=== PATIENT | female | born 1985 | race American Indian/Alaskan Native ===

== ENCOUNTER 2017-05-02 09:33 | Emergency (ER) | payer SELFPAY ==
--- NOTE | 2017-05-02 14:01 | Ultrasound Report ---
Targeted left breast ultrasound. History: 32 year-old female who presents to the emergency room with history of subareolar mass times one day with extreme pain and tenderness. There is no history of injury or trauma. No prior studies are available. Findings: In the subareolar region, there is a complex collection measuring 1.6 x 2.0 cm. The margins are circumscribed, and there is no acoustic shadowing. Impression: Complex collection as described probably representing a subareolar abscess. BI-RADS code: 3. Recommendation: Short-term sonographic followup after appropriate management.
[2017-05-02] MEDS ORDERED: KEFLEX PO ONE (14:06)
[2017-05-02] MEDS ORDERED: BACTRIM DS PO ONE (14:06)
[2017-05-02] MEDS ORDERED: MOTRIN PO ONE (14:08)
[2017-05-02 14:09] VITALS: BP 135/77
--- NOTE | 2017-05-02 15:53 | Emergency Department Report ---
Entered by MARY CASTILLO, acting as scribe for OLIVER GUTIÉRREZ PA. ED Female HPI - General Chief complaint: Urogenital-Female Stated complaint: RT BREAST SWOLLEN/NIPPLE Time Seen by Provider: 05/02/17 13:13 Source: patient Mode of arrival: Ambulatory Limitations: No Limitations - History of Present Illness Initial comments: 32 year old female with no significant PMHx presents to ED c/o right breast pain with edema last night. Patient states she had similar symptoms, with both breast, during her menstrual cycle, but last night symptoms occur only on right side. Patient states in the past day the masses gotten bigger and has become more painful to touch, she describes them as throbbing pain aching in nature that's localized to her right middle breast. Patient reports tingling 2 days prior before onset of her cycle, but denies headache, dizziness, nausea, vomiting, abd pain, chest pain, SOB, , and numbness. Patient is currently on her menstrual cycle that started 2 days ago. NKDA. HART Complaint: other (right breast nipple swollen ) -: Last night Radiation: non-radiating Severity: moderate Severity scale (0 -10): 5 Quality: stabbing Consistency: constant Improves with: none Worsens with: menstrual period Are you Now?: No Associated Symptoms: denies other symptoms. denies: vaginal discharge, vaginal bleeding, abdominal pain, nausea/vomiting, fever/chills, headaches, shortness of breath, syncope, weakness - Related Data Previous Rx's Medication Instructions Recorded Last Taken Type Cephalexin [Keflex] 250 mg PO BID #8 capsule 05/02/17 Unknown Rx Ibuprofen [Motrin] 800 mg PO Q8HR PRN #30 tablet 05/02/17 Unknown Rx Sulfamethoxazole/Trimethoprim 1 each PO BID #12 tablet 05/02/17 Unknown Rx [Bactrim DS TAB] Allergies Allergy/AdvReac Type Severity Reaction Status Date / Time No Known Allergies Allergy Unverified 05/02/17 10:04 ED Review of Systems Comment: All other systems reviewed and negative Constitutional: denies: chills, fever Respiratory: denies: cough, shortness of breath, wheezing Cardiovascular: denies: chest pain, palpitations Gastrointestinal: denies: abdominal pain, nausea, vomiting, diarrhea Genitourinary: denies: urgency, dysuria, frequency, discharge Musculoskeletal: denies: back pain, joint swelling, arthralgia Skin: denies: rash, lesions Neurological: denies: headache, weakness, numbness, paresthesias ED Past Medical Hx - Past Medical History Previous Medical History?: No - Surgical History Additional Surgical History: x 3 - Social History Smoking Status: Current Every Day Smoker Substance Use Type: Alcohol, Marijuana - Medications Home Medications: Home Medications Medication Instructions Recorded Confirmed Last Taken Type Cephalexin [Keflex] 250 mg PO BID #8 capsule 05/02/17 Unknown Rx Ibuprofen [Motrin] 800 mg PO Q8HR PRN #30 tablet 05/02/17 Unknown Rx Sulfamethoxazole/Trimethoprim 1 each PO BID #12 tablet 05/02/17 Unknown Rx [Bactrim DS TAB] ED Physical Exam - General Limitations: No Limitations - Other Other exam information: GENERAL: Patient is alert and oriented x 3. No apparent distress, normal gait, atraumatic. HEAD: Head is normocephalic and atraumatic. BACK: normal inspection, full ROM. No CVA tenderness, no paraspinal tenderness, no vertebral tenderness NECK: Supple. Non edematous, no carotid bruits. No lymphadenopathy or thyromegaly. BREAST: supple, non erythematous, no d/c bilat, Right breast 2-4 cm tenderness mass at nipple. LUNGS: Symmetrical with respiration, no wheezing, no rales, no crackles, CTAB HEART: Regular rate and rhythm with normal S1/S2 present. No murmurs, rubs, or gallops. ABDOMEN: Soft, nondistended. Nontender to palpation on all quadrants. No organomegaly was noted. Positive bowel sounds. No CVA tenderness. EXTREMITIES/MUSCULOSKELETAL: No cyanosis, clubbing, rash, lesions or edema. Full ROM bilaterally. UE/LE Pulses 2+ bilaterally. SKIN: Warm and dry. No lesions, ulceration or induration present ED Course Vital Signs 05/02/17 05/02/17 10:05 14:08 Temperature 98.6 F Pulse Rate 62 58 L Respiratory 16 16 Rate Blood Pressure 144/100 Blood Pressure 135/77 [Left] O2 Sat by Pulse 100 99 Oximetry ED Medical Decision Making - Radiology Data Radiology results: report reviewed, image reviewed Ordering Physician: JOHNATHON FIELDS Date of Service: 05/02/17 Procedure(s): US breast RT limited Accession Number(s): [id number] cc: JOHNATHON FIELDS Targeted left breast ultrasound. History: 32 year-old female who presents to the emergency room with history of subareolar mass times one day with extreme pain and tenderness. There is no history of injury or trauma. No prior studies are available. Findings: In the subareolar region, there is a complex collection measuring 1.6 x 2.0 cm. The margins are circumscribed, and there is no acoustic shadowing. Impression: Complex collection as described probably representing a subareolar abscess. BI-RADS code: 3. Recommendation: Short-term sonographic followup after appropriate management. Transcribed By: MRP Dictated By: THOMAS DEGROOT MD Electronically Authenticated By: THMOAS DEGROOT MD Signed Date/Time: 05/02/17 1359 - Medical Decision Making 31-year-old female presents with subareolar mass ED course: Right breast ultrasound completed ED. Ultrasound shows 2 cm subareolar mass Discussed patient outpatient follow-up with the specialist. Discussed the patient could be abscess, hematoma or mass Discussed the patient will need further follow-up after treatment Discussed patient take antibiotics as prescribed. Discussed warm compresses 3 times a day. Discussed follow-up as indicated with the referral. Discussed worsening symptoms or symptoms arise to return to ED. Vital signs are stable patient is in no acute distress ED Disposition Clinical Impression: Subareolar breast abscess, Mass of breast, right Disposition: DC-01 TO HOME OR SELFCARE Is pt being admited?: No Does the pt Need Aspirin: No Condition: Stable Instructions: Breast Mass (ED), Breast Abscess Drainage (ED), Superficial Mass Needle Biopsy (ED) Prescriptions: Cephalexin [Keflex] 250 mg PO BID #8 capsule Ibuprofen [Motrin] 800 mg PO Q8HR PRN #30 tablet PRN Reason: Pain Sulfamethoxazole/Trimethoprim [Bactrim DS TAB] 1 each PO BID #12 tablet Referrals: PRIMARY CARE, [Primary Care Provider] - 3-5 Days TAMERA RODRIGUES MD [Staff Physician] - 3-5 Days ANNA HENLEY MD [Staff Physician] - 3-5 Days Forms: Accompanied Note, Work/School Release Form(ED) Time of Disposition: 14:25 This documentation as recorded by the scribe,CASTILLO,MARY,accurately reflects the service I personally performed and the decisions made by ,OLIVER GUTIÉRREZ PA.
== END 2017-05-02 14:48 | disposition home or self-care (01) ==
LOC: ED 09:33
DX: N61.1 Abscess of the breast and nipple (principal); N63 Unspecified lump in breast; F17.200 Nicotine dependence, unspecified, uncomplicated; F12.10 Cannabis abuse, uncomplicated